=== PATIENT | female | born 1985 | race Asian ===

== ENCOUNTER → 2018-03-25 | Outpatient (CLI) | payer OTHER | LOC: M RAD 07:34 | DX: H90.A31 Mixed conductive and sensorineural hearing loss, unilateral, right ear with restricted hearing on the contralateral side (principal); H70.11 Chronic mastoiditis, right ear | CPT/HCPCS: 70480 ==

== ENCOUNTER → 2018-04-02 | Outpatient (CLI) | payer OTHER | LOC: M PLARAD 12:55 | DX: D18.09 Hemangioma of other sites (principal); R51 Headache | CPT/HCPCS: 70553 ==

== ENCOUNTER → 2018-10-03 | Outpatient (REF) | payer OTHER | LOC: M SFHCLERA 13:03 | PROVIDERS: ATTEND Nurse Practitioner Family | DX: J02.9 Acute pharyngitis, unspecified (principal) ==

== ENCOUNTER → 2018-12-11 | Outpatient (REF) | payer OTHER | LOC: M SFHCLERA 09:41 | PROVIDERS: ATTEND Nurse Practitioner Family | DX: J02.9 Acute pharyngitis, unspecified (principal) ==

== ENCOUNTER → 2018-12-14 | Outpatient (REF) | payer OTHER | LOC: M SFHCLERA 11:28 | PROVIDERS: ATTEND Nurse Practitioner Family | DX: R53.81 Other malaise (principal) ==

== ENCOUNTER → 2018-12-29 | Outpatient (REF) | payer OTHER | LOC: M SFHCLERA 12:57 | PROVIDERS: ATTEND Physician Assistant | DX: R39.15 Urgency of urination (principal) | CPT/HCPCS: 81002; 81025; 87086; G0463 ==

== ENCOUNTER → 2020-03-06 | Outpatient (CLI) | payer OTHER ==
--- NOTE | 2020-03-06 12:16 | REPVR ---
PROCEDURE INFORMATION: Exam: MR Angiogram Head Without Contrast, Arteries Exam date and time: 03/06/2020 11:23 AM Age: 35 years old Clinical indication: Condition or disease; Aneurysm, cerebral; Patient HX: Aneurysm, priors requested from [facility] TECHNIQUE: Imaging protocol: MR angiogram head without contrast. Exam focused on the arteries. 3D rendering (Not supervised by radiologist): MIP and/or 3D reconstructed images were created by the technologist. COMPARISON: MRI-Brain W/O FOLL BY WITH 04/02/2018 1:39 PM FINDINGS: Anterior cerebral arteries: Intracranial segment is patent with no significant stenosis. No aneurysm. Right internal carotid artery: Intracranial segment is patent with no significant stenosis. No aneurysm. Right middle cerebral artery: No occlusion or significant stenosis. No aneurysm. Right posterior cerebral artery: No occlusion or significant stenosis. No aneurysm. Right vertebral artery: No occlusion or significant stenosis. No aneurysm. Left internal carotid artery: Intracranial segment is patent with no significant stenosis. No aneurysm. Left middle cerebral artery: No occlusion or significant stenosis. No aneurysm. Left posterior cerebral artery: No occlusion or significant stenosis. No aneurysm. Left vertebral artery: No occlusion or significant stenosis. No aneurysm. Basilar artery: No occlusion or significant stenosis. No aneurysm. IMPRESSION: No stenosis or occlusion. Electronically signed by: Jacinto Hamm On 03/06/2020 12:16:26 PM
== END ==
LOC: M RAD 10:07
PROVIDERS: ATTEND Neurological Surgery
DX: R51 Headache (principal)

== ENCOUNTER → 2021-02-08 | Outpatient (CLI) | payer OTHER ==
--- NOTE | 2021-02-08 19:01 | REPVR ---
PROCEDURE INFORMATION: Exam: MR Head Without Contrast Exam date and time: 02/08/2021 5:14 PM Age: 36 years old Clinical indication: Condition or disease; Aneurysm, cerebral; Additional info: Cerebral cavernoma, aneurysm TECHNIQUE: Imaging protocol: MR of the head without contrast. COMPARISON: MRI BRAIN W/ W/O CONTRAST - OUTSIDE PRIOR 05/25/2019 10:10 AM FINDINGS: Brain: Chronic unchanged small 0.5 cm focus of susceptibility artifact within the right frontal operculum, which could reflect parenchymal calcification, small cavernoma, or focus of hemosiderin deposition from chronic microhemorrhage. No evidence of acute intracranial hemorrhage or extra-axial fluid collection. No evidence of mass effect or midline shift. No white matter abnormalities. No restricted diffusion to suggest acute infarct. Cerebral ventricles: Ventricles, cisterns, and sulci are normal. Bones/joints: Unremarkable. Paranasal sinuses: Normal as visualized. No acute sinusitis. Mastoid air cells: No mastoid effusion. Orbital cavity: Unremarkable. Soft tissues: Unremarkable. IMPRESSION: 1. No acute intracranial findings. 2. Chronic unchanged small 0.5 cm focus of susceptibility artifact within the right frontal operculum, which could reflect parenchymal calcification, small cavernoma, or focus of hemosiderin deposition from chronic microhemorrhage. Electronically signed by: Guicho Bui On 02/08/2021 19:01:14 PM
--- NOTE | 2021-02-08 19:03 | REPVR ---
PROCEDURE INFORMATION: Exam: MRA Head Without Contrast; Arteriography Exam date and time: 02/08/2021 5:14 PM Age: 36 years old Clinical indication: Condition or disease; Aneurysm, cerebral; Additional info: Cerebral cavernoma, aneurysm TECHNIQUE: Imaging protocol: Magnetic resonance angiography head without contrast. Exam focused on the arteries. COMPARISON: MRA BRAIN W/O CONTRAST 03/06/2020 11:17 AM FINDINGS: ANTERIOR CIRCULATION: Right internal carotid artery: Intracranial segment is patent with no significant stenosis. No aneurysm. Right middle cerebral artery: No occlusion or significant stenosis. No aneurysm. Right anterior cerebral artery: No occlusion or significant stenosis. No aneurysm. Left internal carotid artery: Intracranial segment is patent with no significant stenosis. No aneurysm. Left middle cerebral artery: No occlusion or significant stenosis. No aneurysm. Left anterior cerebral artery: No occlusion or significant stenosis. No aneurysm. POSTERIOR CIRCULATION: Right vertebral artery: No occlusion or significant stenosis. No aneurysm. Left vertebral artery: No occlusion or significant stenosis. No aneurysm. Basilar artery: No occlusion or significant stenosis. No aneurysm. Right posterior cerebral artery: No occlusion or significant stenosis. No aneurysm. Left posterior cerebral artery: No occlusion or significant stenosis. No aneurysm. IMPRESSION: No MRA evidence of intracranial arterial aneurysm, occlusion, or significant stenosis. Electronically signed by: Guicho Bui On 02/08/2021 19:02:55 PM
== END ==
LOC: M RAD 16:28
PROVIDERS: ATTEND Physician Assistant Medical
DX: Q28.3 Other malformations of cerebral vessels (principal)

== ENCOUNTER → 2025-06-20 | Outpatient (RCR) | LOC: M EMPSKH 05-24 12:58 | PROVIDERS: ATTEND Family Medicine | DX: Z20.828 Contact with and (suspected) exposure to other viral communicable diseases (principal) ==